=== PATIENT | female | born 1995 | race Caucasian/White ===

== ENCOUNTER 2018-06-12 12:28 | Inpatient (IN) | payer MEDICAID ==
[~2018-06-12 12:28] MED LIST: METHYLERGONOVINE 0.2 MG INJ
[2018-06-12] MEDS ORDERED: LACTATED RINGER'S 1,000 ML IV (12:59)
[2018-06-12] MEDS ORDERED: OXYTOCIN 30 UNITS/LR 500 ML IV ×2 (13:00→18:30)
[2018-06-12] MEDS ORDERED: BUTORPHANOL 2 MG INJ IV (13:00)
[2018-06-12] MEDS ORDERED: ACETAMINOPHEN/CODEINE #3 TAB PO (13:00)
[2018-06-12] MEDS ORDERED: LIDOCAINE 1% (MPF) 30 ML INJ INJ (13:00)
[2018-06-12] MEDS ORDERED: IBUPROFEN 600 MG TAB PO (13:00)
[2018-06-12] MEDS ORDERED: CARBOPROST 250 MCG INJ IM ×2 (13:00→18:30)
[2018-06-12] MEDS: LACTATED RINGER'S 1,000 ML IV* ×3 (13:19→22:16)
[2018-06-12 13:31] LABS: ADD MAN DIFF? NO
[2018-06-12 13:35] LABS: ABNORMAL IP MESSAGE 1; BASOPHILS % 0.3 % (0.0-2.0); EOSINOPHILS % 0.3 % (0.0-7.0); HEMATOCRIT 32.3 % (37.0-47.0); HEMOGLOBIN 10.4 g/dl (12.0-16.0); LYMPHOCYTES # 1.7 10^3/ul (0.8-2.9); LYMPHOCYTES % 11.8 % (15.0-51.0); MEAN CORPUSCULAR HEMOGLOBIN 26.4 pg (29.0-33.0); MEAN CORPUSCULAR HGB CONC 32.2 g/dl (32.0-37.0); MEAN PLATELET VOLUME 13.1 fl (7.4-10.4); MONOCYTE # 0.7 10^3/ul (0.3-0.9); MONOCYTES % 4.9 % (0.0-11.0); NEUTROPHIL # 11.4 10^3/ul (1.6-7.5); NEUTROPHILS % 81.6 % (39.0-77.0); PLATELET COUNT 158 10^3/UL (140-415); RED BLOOD COUNT 3.94 10^6/ul (4.20-5.40); RED CELL DISTRIBUTION WIDTH 15.9 % (11.5-14.5)
[2018-06-12 13:38] LABS: POSITIVE DIFF @See below
[2018-06-12 13:54] LABS: INR 0.85; PROTIME 11.7 Sec (11.9-14.9); PT RATIO 0.9
[2018-06-12 13:55] LABS: PARTIAL THROMBOPLASTIN TIME 25.2 Sec (25.0-35.0)
[2018-06-12 15:19] LABS: HEPATITIS B SURFACE ANTIGEN NEGATIVE (NEGATIVE)
[2018-06-12] MEDS: MISOPROSTOL 200 MCG TAB PR (15:52)
[2018-06-12] MEDS: OXYTOCIN 30 UNITS/LR 500 ML IV ×2 (16:01→16:18)
[2018-06-12] MEDS: METHYLERGONOVINE 0.2 MG INJ IM (16:02)
[2018-06-12] MEDS ORDERED: ACETAMINOPHEN 325 MG TAB PO ×2 (18:00→18:30)
[2018-06-12] MEDS ORDERED: METHYLERGONOVINE 0.2 MG INJ IM (18:30)
[2018-06-12] MEDS ORDERED: DIBUCAINE 1% 30 GM OINT PR (18:30)
[2018-06-12] MEDS: IBUPROFEN 600 MG TAB PO (18:30)
[2018-06-12] MEDS ORDERED: HYDROCODONE/APAP (5/325) TAB PO (18:30)
[2018-06-12] MEDS ORDERED: MISOPROSTOL 200 MCG TAB PR (18:30)
[2018-06-12] MEDS: BENZOCAINE 20% 56 ML SPRAY TOP (18:54)
[2018-06-12] MEDS: LANOLIN 7 GM TUBE TOP (18:54)
[2018-06-12] MEDS: WITCH HAZEL/GLYCERIN PAD PR (18:54)
[2018-06-12] MEDS: LACTATED RINGER'S 500 ML IV (19:00)
[2018-06-12 19:16] LABS: ADD MAN DIFF? NO
[2018-06-12 19:19] LABS: WHITE BLOOD COUNT 21.2 10^3/ul (4.8-10.8)
[2018-06-12 19:19] LABS: BASOPHILS % 0.2 % (0.0-2.0); HEMATOCRIT 30.7 % (37.0-47.0); HEMOGLOBIN 9.8 g/dl (12.0-16.0); LYMPHOCYTES # 1.1 10^3/ul (0.8-2.9); MEAN CORPUSCULAR HEMOGLOBIN 25.9 pg (29.0-33.0); MEAN CORPUSCULAR HGB CONC 31.9 g/dl (32.0-37.0); MEAN PLATELET VOLUME 12.7 fl (7.4-10.4); MONOCYTE # 0.9 10^3/ul (0.3-0.9); MONOCYTES % 4.3 % (0.0-11.0); NEUTROPHILS % 89.3 % (39.0-77.0); PLATELET COUNT 146 10^3/UL (140-415); RED BLOOD COUNT 3.79 10^6/ul (4.20-5.40); RED CELL DISTRIBUTION WIDTH 15.9 % (11.5-14.5)
[2018-06-12 20:01] LABS: RAPID PLASMA REAGIN NONREACTIVE (NR)
[2018-06-12] MEDS: SENNA/DOCUSATE NA (8.6MG/50MG) TAB PO (22:16)
[2018-06-12] MEDS: AMPICILLIN/SULB 3 GM/NS (PMX) 100 ML IVPB (23:35)
[2018-06-13] MEDS: IBUPROFEN 600 MG TAB PO ×5 (00:36→23:55)
[2018-06-13] MEDS: AMPICILLIN/SULB 3 GM/NS (PMX) 100 ML IVPB ×5 (05:35→23:55)
[2018-06-13] MEDS: SENNA/DOCUSATE NA (8.6MG/50MG) TAB PO ×2 (09:14→21:18)
[2018-06-13] MEDS: LACTATED RINGER'S 1,000 ML IV* ×2 (09:14→17:51)
[2018-06-13 10:27] LABS: ADD MAN DIFF? NO
[2018-06-13 10:35] LABS: BASOPHILS % 0.2 % (0.0-2.0); EOSINOPHILS % 0.2 % (0.0-7.0); HEMATOCRIT 25.5 % (37.0-47.0); HEMOGLOBIN 8.1 g/dl (12.0-16.0); LYMPHOCYTES # 1.3 10^3/ul (0.8-2.9); LYMPHOCYTES % 8.4 % (15.0-51.0); MEAN CORPUSCULAR HGB CONC 31.8 g/dl (32.0-37.0); MEAN PLATELET VOLUME 12.9 fl (7.4-10.4); MONOCYTE # 1.2 10^3/ul (0.3-0.9); MONOCYTES % 7.4 % (0.0-11.0); NEUTROPHIL # 13.1 10^3/ul (1.6-7.5); NEUTROPHILS % 82.9 % (39.0-77.0); PLATELET COUNT 112 10^3/UL (140-415); RED BLOOD COUNT 3.11 10^6/ul (4.20-5.40); RED CELL DISTRIBUTION WIDTH 16.4 % (11.5-14.5)
[2018-06-13 10:35] LABS: WHITE BLOOD COUNT 15.8 10^3/ul (4.8-10.8)
[2018-06-13] MEDS: FERROUS SULFATE (EC) 325 MG TAB PO (21:18)
[2018-06-14] MEDS: LACTATED RINGER'S 1,000 ML IV* ×3 (02:02→17:44)
[2018-06-14] MEDS: IBUPROFEN 600 MG TAB PO ×3 (05:39→17:44)
[2018-06-14] MEDS: AMPICILLIN/SULB 3 GM/NS (PMX) 100 ML IVPB ×3 (05:39→17:44)
[2018-06-14 08:28] LABS: ADD MAN DIFF? NO
[2018-06-14 08:30] LABS: WHITE BLOOD COUNT 12.8 10^3/ul (4.8-10.8)
[2018-06-14 08:30] LABS: BASOPHILS % 0.2 % (0.0-2.0); EOSINOPHILS # 0.2 10^3/ul (0.0-0.5); EOSINOPHILS % 1.6 % (0.0-7.0); HEMATOCRIT 24.1 % (37.0-47.0); HEMOGLOBIN 7.7 g/dl (12.0-16.0); LYMPHOCYTES # 1.9 10^3/ul (0.8-2.9); LYMPHOCYTES % 14.7 % (15.0-51.0); MEAN CORPUSCULAR HEMOGLOBIN 26.5 pg (29.0-33.0); MEAN CORPUSCULAR VOLUME 82.8 fl (82.0-101.0); MEAN PLATELET VOLUME 12.2 fl (7.4-10.4); MONOCYTE # 0.8 10^3/ul (0.3-0.9); MONOCYTES % 6.2 % (0.0-11.0); NEUTROPHIL # 9.8 10^3/ul (1.6-7.5); NEUTROPHILS % 76.2 % (39.0-77.0); PLATELET COUNT 123 10^3/UL (140-415); RED BLOOD COUNT 2.91 10^6/ul (4.20-5.40); RED CELL DISTRIBUTION WIDTH 16.7 % (11.5-14.5)
[2018-06-14] MEDS: SENNA/DOCUSATE NA (8.6MG/50MG) TAB PO (08:58)
[2018-06-14] MEDS: FERROUS SULFATE (EC) 325 MG TAB PO ×2 (08:58→13:03)
[2018-06-14] MEDS: DIPHTH/TET/ACEL PERTUSS (ADULT) 0.5 ML VIAL IM* (09:00)
== END 2018-06-14 21:05 | disposition home or self-care (01) | DRG 775 ==
LOC: L-D 12:28 → PP1 17:55
PROVIDERS: Obstetrics & Gynecology
PROC: 10E0XZZ Delivery of Products of Conception, External Approach (ICD-10-PCS; principal; 2018-06-12)
PROC: 0KQM0ZZ Repair Perineum Muscle, Open Approach (ICD-10-PCS; 2018-06-12)
PROC: 4A1HXCZ Monitoring of Products of Conception, Cardiac Rate, External Approach (ICD-10-PCS; 2018-06-12)
DX: O70.1 Second degree perineal laceration during delivery (principal); Z37.0 Single live birth; Z3A.39 39 weeks gestation of pregnancy
CPT/HCPCS: 85025; 85610; 85730; 86592; 86850; 86900; 86901; 87086; 87340; 90715